=== PATIENT | female | born 1985 | race Caucasian/White ===

== ENCOUNTER 2018-01-16 21:22 | Outpatient (CLI) | END 2018-01-17 | disposition home or self-care (01) ==

== ENCOUNTER 2018-01-24 15:50 | Inpatient (IN) | END 2018-01-25 10:30 | disposition home or self-care (01) | DRG 833 ==

== ENCOUNTER 2018-02-22 07:27 | Inpatient (IN) | END 2018-02-25 18:01 | disposition home or self-care (01) | DRG 788 ==